=== PATIENT | female | born 1960 | race Caucasian/White ===

== ENCOUNTER → 2025-06-18 08:42 | Outpatient (CLI) | payer OTHER, SELFPAY ==
--- NOTE | 2025-06-18 07:44 | DI.NM.S_ITS ---
PROCEDURE: NM HIDA WITH CCK PHARMACEUTICAL: 5.3 mCi Tc-99m mebrofenin IV; 1.7 mcg CCK IV. INDICATIONS: HX of pancreatitis TECHNIQUE: Following intravenous administration of Tc-99m mebrofenin, sequential anterior abdominal images were obtained. To evaluate the contractile response of the gallbladder in response to Cholecystokinin (CCK), sincalide (0.02 ???g/kg) was administered by slow intravenous infusion approximately 60 minutes after the administration of the radiopharmaceutical. Sequential imaging was continued for 30 minutes after the start of CCK infusion. Gallbladder ejection fraction was calculated. COMPARISON: None. FINDINGS: Biliary scan: There is normal tracer uptake and excretion by the liver. There is normal visualization of the intrahepatic ducts, common bile duct, and gallbladder. There is normal tracer transit into the duodenum. CCK stimulation: There is decreased contractile response of the gallbladder to CCK infusion. The calculated gallbladder ejection fraction is 5% ; normal values are above 35%. It has been shown that any patient abdominal pain after CCK administration is related to the rate of CCK injection, rather than to any underlying gallbladder disease (Clinical Nuclear Medicine 2012; 37: 63-70. Journal of Nuclear Medicine 2014; 55: 1-9). IMPRESSION: 1. There is normal tracer uptake and excretion by the liver with visualization of the bile ducts, gallbladder and transit into the duodenum. 2. Decreased contractile response of the gallbladder to CCK infusion, correlate for chronic cholecystitis. Dictated by: Paulino Avalos M.D. on 06/18/2025 at 12:57 Approved by: Paulino Avalos M.D. on 06/18/2025 at 13:01
== END ==
DX: Z09 Encounter for follow-up examination after completed treatment for conditions other than malignant neoplasm (principal); Z87.19 Personal history of other diseases of the digestive system
CPT/HCPCS: 78227; A9537; J2805